=== PATIENT | male | born 1990 | race Caucasian/White ===

== ENCOUNTER 2019-02-21 06:15 | Day surgery (SDC) | payer OTHER ==
[~2019-02-21 06:15] MED LIST: OMEPRAZOLE MAGN20 MG PO; PEPCID AC20 MG PO; PROAIR HFA8.5 GM IH; SYMBICORT 16010.2 GM IH; ZESTRIL10 M1 PO
[2019-02-21] MEDS ORDERED: NEURONTIN600 M1 PO (12:06)
[2019-02-21] MEDS ORDERED: ULTRACET PO (12:06)
== END 2019-02-21 14:41 | disposition home or self-care (01) ==
LOC: CIR.AMB 06:15
DX: K80.10 Calculus of gallbladder with chronic cholecystitis without obstruction (principal)